=== PATIENT | female | born 1980 | race Caucasian/White ===

== ENCOUNTER 2018-01-04 07:48 | Inpatient (IN) | payer MEDICAID ==
[~2018-01-04] VITALS: Ht 167.6 cm; Wt 86.3 kg
[2018-01-04] VITALS (15 sets, daily range): BP systolic 102–117; BP diastolic 64–72
[2018-01-04] MEDS ORDERED: normal saline 1000ML IV soln IVB ONE (08:35)
[2018-01-04] MEDS ORDERED: ondansetron/PF 4mg/2ml inj IV ONE (08:35)
[2018-01-04 08:43] LABS: CLARITY,URINE SLIGHTLY CLOUDY (Clear); COLOR,URINE YELLOW (Yellow); GLUCOSE, URINE NEGATIVE (Neg); KETONES,URINE 40 mg/dl (Neg); LEUKOCYTE ESTERASE ,URINE NEGATIVE (Neg); NITRITES, URINE NEGATIVE (Neg); OCCULT BLOOD,URINE TRACE-INTACT (Neg); PROTEIN,URINE NEGATIVE (Neg); UROBILINOGEN,URINE 0.2 E.U/dL (0.2-1.0)
[2018-01-04 08:45] LABS: URINE HCG NEGATIVE (NEG)
[2018-01-04 08:51] LABS: UA COLLECTION TYPE CLN CATCH MIDSTREAM
[2018-01-04] MEDS: morphine 4 MG/ML inj SYRINge IV PRN ×3 (08:55→12:03)
[2018-01-04 08:56] LABS: BACTERIA,URINE 1+ /HPF (Neg); MUCUS STRANDS MODERATE /LPF (Neg); SQUAMOUS EPITHELIAL CELL,UR MANY /LPF (FEW)
[2018-01-04 08:57] LABS: WBC,URINE 0-4 /HPF (0-4)
[2018-01-04 08:58] LABS: RBC,URINE 0-2 /HPF (0-2)
[2018-01-04 09:03] LABS: BASOPHILS % (AUTO) 0.3 % (0-1); EOSINOPHILS % (AUTO) 0.4 % (0-6); HEMATOCRIT 37.2 % (35.0-45.0); HEMOGLOBIN 12.2 g/dl (12.0-16.0); LYMPHOCYTES # (AUTO) 1.3 X10'3 (1.1-4.8); LYMPHOCYTES % (AUTO) 11.8 % (21-51); MEAN CORPUSCULAR HEMOGLOBIN 28.1 PG (27.0-31.0); MEAN CORPUSCULAR HGB CONC 32.8 % (33.0-36.5); MEAN CORPUSCULAR VOLUME 85.7 FL (78-98); MEAN PLATELET VOLUME 8.1 FL (7.4-10.4); MONOCYTES # (AUTO) 1.1 X10'3 (0-0.9); MONOCYTES % (AUTO) 9.5 % (2-12); NEUTROPHILS # (AUTO) 8.8 X10'3 (1.8-7.7); PLATELET COUNT 277 X10'3 (140-440); RED BLOOD COUNT 4.34 X10'6 (4.20-5.60); RED CELL DISTRIBUTION WIDTH 15.7 % (11.5-14.5); WHITE BLOOD COUNT 11.3 X10'3 (4.5-11.0)
[2018-01-04 09:16] LABS: ALANINE AMINOTRANSFERASE 32 U/L (12-78); ALBUMIN 3.4 G/DL (3.4-5.0); ALBUMIN/GLOBULIN RATIO 0.9 (1.1-1.5); ALKALINE PHOSPHATASE 88 IU/L (46-116); ANION GAP 10 (8-16); ASPARTATE AMINO TRANSFERASE 19 U/L (10-37); BILIRUBIN,TOTAL 0.2 MG/DL (0.1-1.0); BLOOD UREA NITROGEN 15 MG/DL (7-18); BUN/CREATININE RATIO 21.4 (6.6-38.0); CALCIUM 8.3 MG/DL (8.5-10.1); CHLORIDE 104 MMOL/L (99-107); GLUCOSE 95 MG/DL (70-104); LIPASE 88 U/L (73-393); POTASSIUM 3.6 MMOL/L (3.5-5.1); SODIUM 139 MMOL/L (135-145); TOTAL CARBON DIOXIDE 25.4 MMOL/L (24-32); TOTAL PROTEIN 7.2 G/DL (6.4-8.2); eGFR > 90 ML/MIN
[2018-01-04 09:20] LABS: PROTHROMBIN TIME 10.7 SECONDS (9.0-12.0)
[2018-01-04] MEDS ORDERED: magnesium hydroxide 30ml (MOM) UD suspension PO PRN (11:15)
[2018-01-04] MEDS ORDERED: acetaminophen 325mg tablet PO PRN (11:15)
[2018-01-04] MEDS ORDERED: mag hydrox/Alum hydrox/simeth 30ml oral suspension PO PRN (11:15)
[2018-01-04] MEDS ORDERED: ondansetron/PF 4mg/2ml inj IV PRN ×2 (11:15→16:30)
[2018-01-04] MEDS: dextrose 5%-1/2 normal saline 1,000 ML IV SCH ×2 (14:02→20:54)
[2018-01-04] MEDS: morphine 2 MG/ML inj. syringe IV PRN ×3 (16:01→23:37)
[2018-01-04] MEDS ORDERED: ringers solution, lacted 1,000 ML IV SCH (16:28)
[2018-01-04] MEDS ORDERED: hydrALAZINE 20mg/ml inj. IV PRN (16:30)
[2018-01-04] MEDS ORDERED: labetalol 20mg/4ml (5mg/ml) syringe IV PRN (16:30)
[2018-01-04] MEDS ORDERED: morphine 4 MG/ML inj SYRINge IV PRN ×2 (16:30)
[2018-01-04] MEDS ORDERED: fentaNYL/PF 50MCG/1 ML 2ML syringe IV PRN ×2 (16:30)
[2018-01-04] MEDS ORDERED: TOPI25TA49 PO (16:34)
[2018-01-04] MEDS ORDERED: rocuronium 10mg/ml inj IV ONE (16:37)
[2018-01-04] MEDS ORDERED: LIDOcaine 2% (20mg/ml) 5ml vial ONE (16:37)
[2018-01-04] MEDS ORDERED: propofol inj 20 ML IV ONE (16:37)
[2018-01-04] MEDS ORDERED: ondansetron/PF 4mg/2ml inj ONE (16:37)
[2018-01-04] MEDS ORDERED: glycopyrrolate 0.2mg/ml inj ONE (16:37)
[2018-01-04] MEDS ORDERED: midazolam 2 mg/2 ml injection ONE (16:38)
[2018-01-04] MEDS ORDERED: fentaNYL/PF 50MCG/1 ML 2ML syringe ONE (16:38)
[2018-01-04] MEDS ORDERED: LIDOcaine 1% 30ml preserv. free vial ONE (16:51)
[2018-01-04] MEDS ORDERED: BUPIVAcaine/PF 2.5mg/ml (0.25%) 10ml vial ONE (16:51)
[2018-01-04] MEDS ORDERED: clindamycin phosphate 150mg/ml inj. ONE (17:28)
[2018-01-04] MEDS ORDERED: iohexol 300 MG/1 ML 50ml polymer ONE (17:57)
[2018-01-04] MEDS ORDERED: HYDROcodone/acetaminophen 5mg/325mg tablet PO PRN (19:00)
[2018-01-04] MEDS: HYDROcodone/acetaminophen 10/325mg tab PO PRN (20:53)
[2018-01-05] MEDS: HYDROcodone/acetaminophen 10/325mg tab PO PRN ×3 (01:20→12:05)
[2018-01-05 02:47] VITALS: BP 102/57
[2018-01-05] MEDS: morphine 2 MG/ML inj. syringe IV PRN (04:52)
[2018-01-05 05:00] VITALS: BP 99/56
[2018-01-05] MEDS ORDERED: enoxaparin 40mg/0.4ml syringe SUBCUT SCH (08:00)
[2018-01-05] MEDS: dextrose 5%-1/2 normal saline 1,000 ML IV SCH (08:07)
[2018-01-05 10:00] LABS: BASOPHILS % (AUTO) 0.1 % (0-1); EOSINOPHILS % (AUTO) 0 % (0-6); HEMOGLOBIN 10.7 g/dl (12.0-16.0); LYMPHOCYTES # (AUTO) 1.3 X10'3 (1.1-4.8); LYMPHOCYTES % (AUTO) 10.3 % (21-51); MEAN CORPUSCULAR HEMOGLOBIN 28.2 PG (27.0-31.0); MEAN CORPUSCULAR HGB CONC 32.6 % (33.0-36.5); MEAN CORPUSCULAR VOLUME 86.7 FL (78-98); MONOCYTES # (AUTO) 0.9 X10'3 (0-0.9); MONOCYTES % (AUTO) 7.4 % (2-12); NEUTROPHILS # (AUTO) 10.1 X10'3 (1.8-7.7); NEUTROPHILS % (AUTO) 82.2 % (42-75); PLATELET COUNT 240 X10'3 (140-440); RED CELL DISTRIBUTION WIDTH 15.6 % (11.5-14.5); WHITE BLOOD COUNT 12.3 X10'3 (4.5-11.0)
[2018-01-05 10:13] VITALS: BP 118/60
[2018-01-05 10:23] LABS: ALKALINE PHOSPHATASE 77 IU/L (46-116); ANION GAP 11 (8-16); ASPARTATE AMINO TRANSFERASE 50 U/L (10-37); BILIRUBIN,TOTAL 0.2 MG/DL (0.1-1.0); CHLORIDE 105 MMOL/L (99-107); POTASSIUM 3.5 MMOL/L (3.5-5.1); SODIUM 137 MMOL/L (135-145); TOTAL CARBON DIOXIDE 21.5 MMOL/L (24-32); TOTAL PROTEIN 6.5 G/DL (6.4-8.2)
[2018-01-05] MEDS ORDERED: HYDR-4383 PO (10:34)
[2018-01-05 10:37] LABS: ALANINE AMINOTRANSFERASE 59 U/L (12-78); ALBUMIN 2.9 G/DL (3.4-5.0); ALBUMIN/GLOBULIN RATIO 0.8 (1.1-1.5); BLOOD UREA NITROGEN 6 MG/DL (7-18); CREATININE 0.75 MG/DL (0.40-0.90); GLUCOSE 164 MG/DL (70-104); eGFR 87 ML/MIN
[2018-01-05] MEDS ORDERED: ketorolac tromethamine 15mg/ml inj. IV ONE (11:00)
== END 2018-01-05 13:24 | disposition home or self-care (01) | DRG 263 ==
LOC: ER 07:49 → ED HOLD 11:15 → ORTHO 4S 12:30
PROVIDERS: ADMIT Internal Medicine; ATTEND Hospitalist
PROC: BF101ZZ Fluoroscopy of Bile Ducts using Low Osmolar Contrast (ICD-10-PCS; 2018-01-04)
PROC: 0FT44ZZ Resection of Gallbladder, Percutaneous Endoscopic Approach (ICD-10-PCS; principal; 2018-01-04 16:58)
DX: K80.00 Calculus of gallbladder with acute cholecystitis without obstruction (principal); E66.9 Obesity, unspecified; Z68.30 Body mass index [BMI] 30.0-30.9, adult; Z91.041 Radiographic dye allergy status; Z88.5 Allergy status to narcotic agent; Z91.013 Allergy to seafood
CPT/HCPCS: 36415; 74301; 76000; 76700; 80053; 81001; 81025; 83690; 85025; 85610; 87070; 96361; 96374; 99285; A6251; A7000; J1650; J1885; J2001; J2250; J2270; J2405; J2704; J3010; J3490; J7120; Q9967